=== PATIENT | male | born 1975 | race Caucasian/White ===

== ENCOUNTER → 2016-07-26 | Day surgery (SDC) | payer OTHER ==
[2016-07-26 13:04] LABS: HCT 39.4 % (42.0-52.0); HGB 13.3 g/dl (13.2-18.0); MCH 31.5 pg (25.0-31.0); MCHC 33.8 g/dL (32.0-36.0); MCV 93.4 fL (78.0-100.0); MPV 9.7 fL (6.0-9.5); RBC 4.22 M/uL (4.70-6.00); RDW 13.7 % (11.5-14.0); WBC 6.2 K/uL (4.0-10.5)
[2016-07-26 13:17] LABS: INR 0.93 (0.9-1.2); PROTHROMBIN TIME 12.1 SECONDS (11.7-14.0)
[2016-07-26 13:18] LABS: PTT 28.9 SECONDS (23.2-31.4)
[2016-07-26 13:27] LABS: CREATININE 0.8 mg/dL (0.7-1.2); POTASSIUM 4.5 mmol/L (3.5-5.1)
== END | disposition home or self-care (01) ==
LOC: FAS 12:49
PROVIDERS: Surgery
DX: K40.20 Bilateral inguinal hernia, without obstruction or gangrene, not specified as recurrent (principal); Z83.3 Family history of diabetes mellitus; Z79.899 Other long term (current) drug therapy
CPT/HCPCS: 36415; 80048; 85610; 85730; C1727; C1781; J0690; J1170; J2405; J2704; J2710; J3010

== ENCOUNTER → 2016-08-11 | Day surgery (SDC) | payer OTHER ==
[2016-08-11 11:57] LABS: HCT 41.5 % (42.0-52.0); HGB 14.2 g/dl (13.2-18.0); LYMPHOCYTE 50.1 % (15-48); MCH 31.9 pg (25.0-31.0); MCHC 34.2 g/dL (32.0-36.0); MCV 93.3 fL (78.0-100.0); MONOCYTE 5.8 % (0-12); MPV 9.7 fL (6.0-9.5); NEUTROPHIL 39.1 % (41-80); PLT 310 K/uL (150-400); RBC 4.45 M/uL (4.70-6.00); RDW 13.4 % (11.5-14.0)
== END | disposition home or self-care (01) ==
LOC: FAS 10:47
PROVIDERS: Oral & Maxillofacial Surgery
DX: K02.9 Dental caries, unspecified (principal); Z79.899 Other long term (current) drug therapy; Z79.2 Long term (current) use of antibiotics
CPT/HCPCS: 36415; 71010; 85025; 93005; J1100; J1170; J2270; J2704; J2710; J3010